=== PATIENT | female | born 1985 | race Caucasian/White ===

== ENCOUNTER 2016-04-06 08:45 | Outpatient (CLI) | payer MEDICAID | END 2016-04-06 08:46 | disposition home or self-care (01) | DX: Z00.00 Encounter for general adult medical examination without abnormal findings (principal) ==

== ENCOUNTER 2016-11-28 12:12 | Emergency (ER) | payer MEDICAID, OTHER ==
[2016-11-28 12:17] VITALS: BP 158/88
[2016-11-28 12:45] LABS: HCG UR QUAL NEGATIVE
--- NOTE | 2016-11-28 12:50 | ED Physician Documentation ---
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 She has had persistent pain over the dorsum of the wrist now radiating up to the elbow worse after hard days work. She was swollen 2 days ago but that is better.) Review of Systems Constitutional: reports: Reviewed and negative Nose: reports: Reviewed and negative Throat: reports: Reviewed and negative PD PAST MEDICAL HISTORY - Present Medications Home Medications: Ambulatory Orders Medication Instructions Recorded Confirmed Meloxicam [Mobic] 7.5 mg PO BIDWM PRN #15 tablet 11/28/16 - Allergies Allergies/Adverse Reactions: Allergies Allergy/AdvReac Type Severity Reaction Status Date / Time No Known Drug Allergies Allergy Verified 11/28/16 12:17 PD ED PE NORMAL - Vitals Vital signs reviewed: Yes - General General: Alert and oriented X 3, No acute distress - Extremities Extremities: Other (Right wrist is mildly tender dorsally, full range of motion , negative de Quervain's testing.) - Neuro Neuro: Alert and oriented X 3, Normal speech - Psych Psych: Normal mood, Normal affect Results - Vitals Vitals: Vital Signs - 24 hr 11/28/16 12:14 Temperature 36.4 C L Heart Rate 82 Respiratory 18 Rate Blood Pressure 158/88 H O2 Saturation 98 Oxygen O2 Source Room air - Labs Labs: Laboratory Tests 11/28/16 12:25 Ur Specific [place] 1.015 Urine HCG, Qual NEGATIVE - Rads (name of study) R wrist 4v Radiology: EMP read contemporaneously (negative) Departure - Departure Disposition: 01 Home, Self Care Clinical Impression: Right wrist tendinitis Right wrist sprain Qualifiers: Encounter type: initial encounter Qualified Code(s): S63.501A - Unspecified sprain of right wrist, initial encounter Condition: Good Record reviewed to determine appropriate education?: Yes Instructions: ED Sprain Wrist Prescriptions: Meloxicam [Mobic] 7.5 mg PO BIDWM PRN #15 tablet PRN Reason: Pain Comments: Your blood pressure was elevated today on check into the emergency department. This does not mean that you have hypertension, it is a common phenomenon to come to the emergency department and have elevated blood pressure. I recommend that you see your primary care physician within the week to have it rechecked when you are feeling better. Recheck with your doctor in 1 week. Forms: Activity restrictions
--- NOTE | 2016-11-28 13:25 | XRAY Preliminary Report ---
Exam: XR WRIST 4 VIEW RT IMPRESSION: Negative four view right wrist radiography. [facility] SITE ID: [id number]
--- NOTE | 2016-11-28 13:27 | XRAY Report ---
EXAM: RIGHT WRIST RADIOGRAPHY EXAM DATE: 11/28/2016 01:18 PM. CLINICAL HISTORY: Wrist injury-pain/tender. COMPARISON: None. TECHNIQUE: 4 views. FINDINGS: Bones: Normal. No fractures or bone lesions. Joints: Normal. No subluxations. Soft Tissues: Normal. No soft tissue swelling. IMPRESSION: Negative four view right wrist radiography. [facility] Referring Provider Line: [phone] SITE ID: [id number]
== END 2016-11-28 13:38 | disposition home or self-care (01) ==
LOC: ED 12:12
DX: M77.9 Enthesopathy, unspecified (principal); S63.501A Unspecified sprain of right wrist, initial encounter; X50.1XXA Overexertion from prolonged static or awkward postures, initial encounter; Y93.89 Activity, other specified; Y92.89 Other specified places as the place of occurrence of the external cause; Y99.0 Civilian activity done for income or pay; R03.0 Elevated blood-pressure reading, without diagnosis of hypertension
CPT/HCPCS: 1040M; 73110; 81025; 99283